=== PATIENT | female | born 1985 | race Caucasian/White ===

== ENCOUNTER 2021-10-08 22:05 | Emergency (ER) | payer MEDICAID, OTHER ==
[~2021-10-08] VITALS: Ht 162.6 cm; Wt 68.2 kg
[2021-10-08] MEDS ORDERED: KETOROLAC TROMETHAMINE 60 MG/2 ML VIAL IM ONE (23:00)
[2021-10-08] MEDS ORDERED: HYDROCODONE/ACETAMINOPHEN 5-325 MG TABLET PO ONE (23:30)
[2021-10-09 01:00] VITALS: BP 124/73
== END 2021-10-09 01:23 | disposition home or self-care (01) ==
LOC: EMS 22:08
DX: S89.91XA Unspecified injury of right lower leg, initial encounter (principal); X58.XXXA Exposure to other specified factors, initial encounter; Y93.89 Activity, other specified; Y92.89 Other specified places as the place of occurrence of the external cause; Y99.8 Other external cause status
CPT/HCPCS: 29505; 73562; 96372; 99283; J1885

== ENCOUNTER 2024-02-12 04:15 | Inpatient (IN) | payer MEDICAID ==
[~2024-02-12] VITALS: Ht 162.6 cm; Wt 61.2 kg
[2024-02-12 05:25] LABS: ANION GAP 17 mmol/L (8-16); CALCIUM, TOTAL 8.6 mg/dL (8.8-10.5); CARBON DIOXIDE 23 mmol/L (22-29); CHLORIDE 102 mmol/L (98-107); CREATININE 0.83 mg/dL (0.60-1.30); GLOMERULAR FILTR. RATE CALC > 60 mL/min (>60); GLUCOSE,RANDOM 122 mg/dL (70-110); POTASSIUM 3.4 mmol/L (3.5-5.1); SODIUM SERUM 142 mmol/L (136-145); UREA NITROGEN, BLOOD 19 mg/dL (7-18)
[2024-02-12 05:25] LABS: APPEARANCE,URINE HAZY (CLEAR); BILIRUBIN,URINE NEGATIVE (NEGATIVE); COLOR,URINE LIGHT ORANGE (YELLOW); GLUCOSE, URINE (UA) NEGATIVE (NEGATIVE); KETONES,URINE 40-60 mg/dL (NEGATIVE); LEUKOCYTE ESTERASE ,URINE NEGATIVE (NEGATIVE); NITRATE,URINE NEGATIVE (NEGATIVE); OCCULT BLOOD,URINE LARGE (NEGATIVE); PH,URINE 5.5 (5.0-8.0); PH,URINE DRUG SCREEN 5.5 (5.0-8.0); PROTEIN,URINE 100-200,SEE CONFIRM mg/dL (NEGATIVE); SPECIFIC GRAVITIY, URINE 1.022 (1.003-1.030); UROBILINOGEN,URINE <=1.0 mg/dL (<=1.0)
[2024-02-12 05:28] LABS: SULFOSALICYLIC ACID,URINE 2+ (Negative)
[2024-02-12 05:29] LABS: AMORPHOUS SEDIMENT,UR Few /LPF (None Seen); AMPHET/METH SCREEN,URINE NEGATIVE (NEGATIVE); BACTERIA,URINE Rare /HPF (None Seen); BARBITURATE SCREEN, URINE NEGATIVE (NEGATIVE); BENZODIAZEPINES SCREEN,URINE NEGATIVE (NEGATIVE); CANNABINOID SCREEN,URINE POSITIVE (NEGATIVE); COARSE GRANULAR CASTS,URINE 0-2 /LPF (None Seen); COCAINE SCREEN,URINE NEGATIVE (NEGATIVE); METHADONE SCREEN, URINE NEGATIVE (NEGATIVE); OPIATE SCREEN,URINE NEGATIVE (NEGATIVE); PHENCYCLIDINE SCREEN,URINE NEGATIVE (NEGATIVE); SQUAMOUS EPITHELIAL CELL,UR Few /LPF (None Seen); WBC,URINE None Seen /HPF (0-5)
[2024-02-12 05:30] LABS: ALANINE AMINOTRANSFERASE 29 U/L (12-78); ALBUMIN 3.9 g/dL (3.4-5.0); ALKALINE PHOSPHATASE 77 U/L (46-116); ASPARTATE AMINOTRANSFERASE 44 U/L (15-37); BILIRUBIN,TOTAL 0.8 mg/dL (0.1-1.0); TOTAL PROTEIN, SERUM 8.2 g/dL (6.4-8.2)
[2024-02-12 05:31] LABS: ALCOHOL, BLOOD (SERUM) 238 mg/dL (0-10)
[2024-02-12 05:34] LABS: BASOPHILS % (AUTO) 0.6 % (0.0-2.0); EOSINOPHILS % (AUTO) 0.8 % (1.0-6.0); HEMATOCRIT 43.9 % (36-46); HEMOGLOBIN 15.1 g/dL (12.0-16.0); LYMPHOCYTES # (AUTO) 1.9 K/uL (1.0-4.8); LYMPHOCYTES % (AUTO) 21.2 % (22.0-44.0); MEAN CORPUSCULAR HGB CONC 34.4 G/dL (31.0-37.0); MEAN CORPUSCULAR VOLUME 87 fL (80-100); MONOCYTES # (AUTO) 0.5 K/uL (0.1-1.0); MONOCYTES % (AUTO) 5.6 % (2.0-9.0); NEUTROPHILS # (AUTO) 6.5 K/uL (1.8-7.7); NEUTROPHILS % (AUTO) 71.8 % (40.0-70.0); PLATELET COUNT (AUTO) 339 K/uL (150-450); RED BLOOD CELL COUNT(AUTO) 5.03 MIL/uL (4.00-5.20); RED CELL DISTRIBUTION WIDTH 15.5 % (11.5-14.5); WHITE BLOOD COUNT (AUTO) 9.1 K/uL (4.5-11.0)
[2024-02-12 05:34] LABS: ALCOHOL, URINE DRUG SCREEN POSITIVE (NEGATIVE)
[2024-02-12 05:57] LABS: COVID AG,FIA SOURCE NASAL SWAB
[2024-02-12] MEDS ORDERED: HALOPERIDOL 5 MG TABLET PO PRN (06:15)
[2024-02-12 06:35] LABS: GLUCOMETER DEV NAME(LOC) ER.6; GLUCOSE,POINT OF CARE 129 MG/DL (70-110)
[2024-02-12 06:40] LABS: SARS-COV2 (COVID) ANTIGEN,FIA Negative (Negative)
[2024-02-12] MEDS: LORazepam 2 MG TABLET PO PRN (08:54)
[2024-02-12] MEDS: KETOROLAC TROMETHAMINE 30 MG/ML VIAL IVP ONE (12:47)
[2024-02-12] MEDS: SODIUM CHLORIDE 0.9% 1,000 ML IV ONE (12:48)
[2024-02-12] MEDS: ACETAMINOPHEN 500 MG TABLET PO ONE (16:59)
[2024-02-13 06:46] LABS: GLUCOMETER DEV NAME(LOC) ER.6; GLUCOSE,POINT OF CARE 72 MG/DL (70-110)
[2024-02-13] MEDS: NICOTINE 21 MG/24 HOUR PATCH TD ONE (14:13)
[2024-02-13 18:15] VITALS: BP 100/68; PULSE 112; RESP 18; TEMP 97; O2SAT 98
[2024-02-13 20:27] VITALS: BP 131/76; PULSE 110; RESP 20; TEMP 98; O2SAT 98
[2024-02-13] MEDS: ZOLPIDEM TARTRATE 10 MG TABLET PO PRN (21:24)
[2024-02-13] MEDS: INFLUENZA VIRUS VACCINE QVS 2023-24 (6MO+)/PF 60 MCG/0.5 ML SYRINGE IM. ONE (23:10)
[2024-02-13] MEDS: PNEUMOCOCCAL VACCINE POLYVALENT 0.5 ML SYRINGE [PPSV23] IM. ONE (23:10)
[2024-02-14] MEDS ORDERED: GuaiFENesin/D-METHORPHAN [SUGAR-FREE] 200-20MG/10 ML SYRUP UDCUP PO PRN (05:00)
[2024-02-14] MEDS ORDERED: MAG HYDROX/ALUMINUM HYD/SIMETH ES 30 ML SUSPENSION UDCUP PO PRN (05:00)
[2024-02-14] MEDS ORDERED: PETROLATUM,WHITE 28 GM JELLY TP PRN (05:00)
[2024-02-14] MEDS ORDERED: IBUPROFEN 400 MG TABLET PO PRN (05:00)
[2024-02-14] MEDS ORDERED: ONDANSETRON HCL 4 MG TABLET PO PRN (05:00)
[2024-02-14] MEDS ORDERED: ACETAMINOPHEN 325 MG TABLET PO PRN (05:00)
[2024-02-14] MEDS ORDERED: ALBUTEROL SULFATE HFA 90 MCG/PUFF 8 GM INHALER IH PRN (05:00)
[2024-02-14] MEDS ORDERED: LOPERAMIDE HCL 2 MG CAPSULE PO PRN (05:00)
[2024-02-14] MEDS ORDERED: CloNIDine HCL 0.1 MG TABLET PO PRN (05:00)
[2024-02-14] MEDS ORDERED: NICOTINE 14 MG/24 HOUR PATCH TD PRN (05:00)
[2024-02-14] MEDS ORDERED: MAGNESIUM HYDROXIDE SUSPENSION 30 ML UDCUP PO PRN (05:00)
[2024-02-14] MEDS ORDERED: DOCUSATE SODIUM 100 MG CAPSULE PO PRN (05:00)
[2024-02-14] MEDS: NICOTINE POLACRILEX 2 MG LOZENGE PO PRN (09:29)
[2024-02-14 13:31] VITALS: BP 124/70; PULSE 98; RESP 18; TEMP 97.3; O2SAT 98
== END 2024-02-14 16:21 | disposition home or self-care (01) | DRG 751 ==
LOC: EMS 04:16 → B2S 02-13 16:21
PROVIDERS: ADMIT Psychiatry & Neurology Psychiatry; ATTEND Psychiatry & Neurology Psychiatry
PROC: GZHZZZZ Group Psychotherapy (ICD-10-PCS; principal; 2024-02-14)
DX: F33.2 Major depressive disorder, recurrent severe without psychotic features (principal); R45.851 Suicidal ideations; F43.10 Post-traumatic stress disorder, unspecified; F17.210 Nicotine dependence, cigarettes, uncomplicated; F12.90 Cannabis use, unspecified, uncomplicated; J45.909 Unspecified asthma, uncomplicated; Z20.822 Contact with and (suspected) exposure to COVID-19; F10.90 Alcohol use, unspecified, uncomplicated; Z98.891 History of uterine scar from previous surgery; Z98.51 Tubal ligation status
CPT/HCPCS: 80053; 80307; 81001; 81002; 82962; 83690; 84703; 85025; 99285; G0480; J1885; J7030; Q9967